=== PATIENT | male | born 1970 | race Caucasian/White ===

== ENCOUNTER 2020-02-28 12:36 | Emergency (ER) | payer MEDICAID, SELFPAY ==
[2020-02-28 12:40] VITALS: BP 141/81; PULSE 79; RESP 18; TEMP 35.8; O2SAT 100; BMI 23.3
--- NOTE | 2020-02-28 12:51 | ED_ITS ---
HPI - URI/Sore Throat General Chief Complaint: Upper Respiratory Symptoms <Lary Llamas NP - Last Filed: 02/28/20 15:16> Stated Complaint: covid symptoms <Lary Llamas NP - Last Filed: 02/28/20 15:16> Time Seen by Provider: 02/28/20 12:46 <Lary Llamas NP - Last Filed: 02/28/20 15:16> Source: patient <Lary Llamas NP - Last Filed: 02/28/20 15:16> Mode of arrival: ambulatory <Lary Llamas NP - Last Filed: 02/28/20 15:16> Limitations: no limitations <Lary Llamas NP - Last Filed: 02/28/20 15:16> History of Present Illness HPI Narrative: 49-year-old male previously healthy here with sore throat, cough and tactile temps x3 day. No chills, body aches, vomiting, diarrhea, abdominal pain, chest pain, shortness of breath. <Lary Llamas NP - Last Filed: 02/28/20 15:16> MD elicited complaint: cough and sore throat <Lary Llamas NP - Last Filed: 02/28/20 15:16> Onset (ago): day(s) <Lary Llamas NP - Last Filed: 02/28/20 15:16> Consistency: intermittent <Lary Llamas NP - Last Filed: 02/28/20 15:16> Severity: mild <Lary Llamas NP - Last Filed: 02/28/20 15:16> Able to tolerate fluids by mouth: Yes <Lary Llamas NP - Last Filed: 02/28/20 15:16> Exacerbating factors: nothing <Lary Llamas NP - Last Filed: 02/28/20 15:16> Relieving factors: nothing <Lary Llamas NP - Last Filed: 02/28/20 15:16> Associated symptoms: sore throat and cough <Lary Llamas NP - Last Filed: 02/28/20 15:16> Treatments prior to arrival: none <Lary Llamas NP - Last Filed: 02/28/20 15:16> Related Data Allergies/Adverse Reactions: Allergies Allergy/AdvReac Type Severity Reaction Status Date / Time naltrexone [NALTREXONE] Allergy Intermediate HIVES Unverified 12/01/19 18:36 <Lary Llamas NP - Last Filed: 02/28/20 15:16> Review of Systems Review of Systems: Yes all other systems are reviewed and are negative <Lary Llamas NP - Last Filed: 02/28/20 15:16> Constitutional: Constitutional: Reports no additional constitutional complaints, Denies body ache(s), Denies chills, Denies fever(s), Denies headache(s) and Denies weakness <Lary Llamas NP - Last Filed: 02/28/20 15:16> Eyes: Eyes: Reports no additional eye complaints and Denies change in vision <Lary Llamas NP - Last Filed: 02/28/20 15:16> ENT: Reports system reviewed and no additional complaints, except as documented, Denies dizziness, Denies headache(s), Denies nasal congestion, Denies nasal discharge, Denies neck pain and Reports sore throat <Lary Llamas NP - Last Filed: 02/28/20 15:16> Cardiovascular: Cardiovascular: Reports no additional cardiovascular complaints, Denies chest pain, Denies leg edema and Denies dyspnea <Lary Llamas NP - Last Filed: 02/28/20 15:16> Respiratory: Respiratory: Reports no additional respiratory complaints, Reports cough and Denies dyspnea <Lary Llamas NP - Last Filed: 02/28/20 15:16> Gastrointestinal: Gastrointestinal: Reports no additional gastrointestinal complaints, Denies abdominal pain, Denies diarrhea, Denies nausea and Denies vomiting <Lary Llamas NP - Last Filed: 02/28/20 15:16> Genitourinary: Genitourinary: Denies urinary incontinence <Lary Llamas NP - Last Filed: 02/28/20 15:16> Musculoskeletal: Musculoskeletal: Reports no additional musculoskeletal complaints, Denies back pain, Denies arthralgias, Denies joint swelling, Denies neck pain, Denies numbness and Denies tingling <Lary Llamas NP - Last Filed: 02/28/20 15:16> Integumentary/Breasts: Skin/Breast: Reports system reviewed and no additional complaints, except as docu and Denies rash <Lary Llamas NP - Last Filed: 02/28/20 15:16> Neurologic: Denies Abnormal speech present, Denies dizziness, Denies headache(s), Denies numbness, Denies tingling and Denies weakness <Lary Llamas NP - Last Filed: 02/28/20 15:16> [facility] Past Medical History Attestation statement: The following information was validated with the patient. <Lary Llamas NP - Last Filed: 02/28/20 15:16> Source: old records reviewed and nursing notes reviewed <Lary Llamas NP - Last Filed: 02/28/20 15:16> Social History Social History: Social History Advance Directives: No Advance Directives Information Provided: No <Lary Llamas NP - Last Filed: 02/28/20 15:16> Physical Exam Vital Signs: Vital Signs: Last Vital Signs Temp 96.5 F L 02/28/20 12:40 Pulse 79 02/28/20 12:40 Resp 18 02/28/20 12:40 BP 141/81 H 02/28/20 12:40 Pulse Ox 100 02/28/20 12:40 Body Mass Index 23.3 <Lary Llamas NP - Last Filed: 02/28/20 15:16> Vital Signs: Last Vital Signs Temp 96.5 F L 02/28/20 12:40 Pulse 79 02/28/20 12:40 Resp 18 02/28/20 12:40 BP 141/81 H 02/28/20 12:40 Pulse Ox 100 02/28/20 12:40 Body Mass Index 23.3 <Michael Moya MD - Last Filed: 03/11/20 09:30> Const: General: cooperative, healthy appearing, comfortable and no acute distress <Lary Llamas NP - Last Filed: 02/28/20 15:16> Orientation/consciousness: patient oriented x3 <Lary Llamas NP - Last Filed: 02/28/20 15:16> Limitations: no limitations <Lary Llamas NP - Last Filed: 02/28/20 15:16> HENMT: Head: Yes normal to inspection <Lary Llamas NP - Last Filed: 02/28/20 15:16> Ears: hearing grossly normal bilaterally <Lary Llamas METEOROLOGICAL TECHNICIAN - Last Filed: 02/28/20 15:16> General nose exam: Normal external nose present <Lary Llamas NP - Last Filed: 02/28/20 15:16> Face and sinus: Yes normal facial exam <Lary Llamas METEOROLOGICAL TECHNICIAN - Last Filed: 02/28/20 15:16> Mouth: Normal oral and palatal mucosa present <Lary Llamas NP - Last Filed: 02/28/20 15:16> Throat: Yes posterior oropharynx normal <Lary Llamas METEOROLOGICAL TECHNICIAN - Last Filed: 02/28/20 15:16> Eyes: General: appearance normal, both eyes and all related structures <Lary Llamas METEOROLOGICAL TECHNICIAN - Last Filed: 02/28/20 15:16> Pupils: Equal, round and reactive pupils present <Lary Llamas NP - Last Filed: 02/28/20 15:16> Neck: Neck: Yes normal visual inspection <Lary Llamas NP - Last Filed: 02/28/20 15:16> Chest: Chest palpation & inspection: normal inspection of the chest <Lary Llamas NP - Last Filed: 02/28/20 15:16> Resp: Effort & Inspection: normal respiratory effort <Lary Llamas NP - Last Filed: 02/28/20 15:16> Auscultation: clear to auscultation bilaterally <Lary Llamas NP - Last Filed: 02/28/20 15:16> Cardio: Rate: regular rate <Lary Llamas NP - Last Filed: 02/28/20 15:16> Rhythm: regular rhythm <Lary Llamas NP - Last Filed: 02/28/20 15:16> Peripheral pulses: Peripheral pulses 2+ throughout <Lary Llamas METEOROLOGICAL TECHNICIAN - Last Filed: 02/28/20 15:16> GI: Inspection: Yes normal to inspection <Lary Llamas NP - Last Filed: 02/28/20 15:16> Palpation (GI): Soft to palpation and nontender <Lary Llamas METEOROLOGICAL TECHNICIAN - Last Filed: 02/28/20 15:16> Auscultation: normal bowel sounds <Lary Llamas NP - Last Filed: 02/28/20 15:16> Back/Spine/Pelvis: Thoracic/Lumbar Spine: thoracic and lumbar spine normal to inspection <Lary Llamas METEOROLOGICAL TECHNICIAN - Last Filed: 02/28/20 15:16> Skin: General skin exam: no rashes or lesions noted <Lary Llamas METEOROLOGICAL TECHNICIAN - Last Filed: 02/28/20 15:16> Neuro: General: patient oriented x3, no focal motor deficits and normal sensation to monofilament <Lary Llamas METEOROLOGICAL TECHNICIAN - Last Filed: 02/28/20 15:16> Cranial nerves: Yes Equal, round and reactive pupils present <Lary Llamas METEOROLOGICAL TECHNICIAN - Last Filed: 02/28/20 15:16> Cognition (Neuro): normal cognition <Lary Llamas NP - Last Filed: 02/28/20 15:16> Speech: No Abnormal speech present <Lary Llamas NP - Last Filed: 02/28/20 15:16> Gait exam (Neuro): Normal gait present <Lary Llamas NP - Last Filed: 02/28/20 15:16> Motor exam (neuro): 5/5 motor strength present throughout <Lary Llamas METEOROLOGICAL TECHNICIAN - Last Filed: 02/28/20 15:16> Extrem: General: Yes normal to inspection <Lary Llamas NP - Last Filed: 02/28/20 15:16> Course Course Course Narrative: Respiratory symptoms times several days. Well appearing. Stable vital signs. Clear lung sounds. Will send COVID testing. 1500-COVID, flu swab negative. Patient called and informed of results. Reviewed worrisome signs and symptoms and when to return to the emergency department. Comfortable discharge home. <Lary Llamas NP - Last Filed: 02/28/20 15:16> I have reviewed the chart <Michael Moya MD - Last Filed: 03/11/20 09:30> MDM - URI/Sore Throat Medical Records Attestation: I reviewed the patient's medical records. <Lary Llamas NP - Last Filed: 02/28/20 15:16> Lab Data Attestation: I reviewed the patient's lab results. <Lary Llamas NP - Last Filed: 02/28/20 15:16> Labs: Lab Results 02/28/20 Range/Units 13:07 Coronavirus (PCR) NEGATIVE (Negative) Influenza Type A (PCR) NEGATIVE (Negative) Influenza Type B (PCR) NEGATIVE (Negative) RSV RNA Qual (PCR) NEGATIVE (Negative) <Lary Llamas NP - Last Filed: 02/28/20 15:16> Lab Results 02/28/20 Range/Units 13:07 Coronavirus (PCR) NEGATIVE (Negative) Influenza Type A (PCR) NEGATIVE (Negative) Influenza Type B (PCR) NEGATIVE (Negative) RSV RNA Qual (PCR) NEGATIVE (Negative) <Michael Moya MD - Last Filed: 03/11/20 09:30> Discharge Plan Discharge Clinical Impression: Upper respiratory infection <Lary Llamas NP - Last Filed: 02/28/20 15:16> Patient Disposition: Home, Self-Care <Lary Llamas NP - Last Filed: 02/28/20 15:16> Instructions: Viral Syndrome (ED) <Lary Llamas NP - Last Filed: 02/28/20 15:16> Additional Instructions: Take tylenol or motrin if able as needed for pain or fever. Stay well hydrated with fluids like water, gatorade and/or powerade. Wash hands at home. If living with others try to self isolate if possible. If unable wear a mask around others in your home and wash hands frequently. If COVID test is positive you will need to self isolate for a total of 10 days from when your symptoms started. You may return to work sooner if testing is negative and all symptoms resolved >24 hours. You should return to the emergency department for severe shortness of breath, chest pain or fever which does not respond to both tylenol and motrin at home. <Lary Llamas NP - Last Filed: 02/28/20 15:16> Referrals: Marta Martinez MD [Primary Care Provider] - 2 days <Lary Llamas NP - Last Filed: 02/28/20 15:16> Stand Alone Forms: Work/School Release <Lary Llamas NP - Last Filed: 02/28/20 15:16> Interventions: ED Discharge Assessment Last Done: 02/28/20 13:12 <Lary Llamas NP - Last Filed: 02/28/20 15:16> Discharge Date/Time: 02/28/20 13:15 <Lary Llamas NP - Last Filed: 02/28/20 15:16>
--- NOTE | 2020-02-28 13:07 | PC.NURSE ---
covid swab performed
[2020-02-28 13:58] LABS: Influenza A PCR NEGATIVE (Negative); Influenza B PCR NEGATIVE (Negative); Resp Syncy Virus RNA Qual PCR NEGATIVE (Negative); SARS COV2 PCR INHOUSE NEGATIVE (Negative)
== END 2020-02-28 13:15 | disposition home or self-care (01) ==
PROVIDERS: Nurse Practitioner Family; Emergency Provider Emergency Medicine; PCP Family Medicine
DX: J06.9 Acute upper respiratory infection, unspecified (principal); R05 Cough; R50.9 Fever, unspecified; Z20.828 Contact with and (suspected) exposure to other viral communicable diseases
CPT/HCPCS: 0241U; 99283